=== PATIENT | male | born 1965 | race Caucasian/White ===

== ENCOUNTER 2016-09-07 17:26 | Emergency (ER) | payer SELFPAY ==
[2016-09-07] MEDS ORDERED: TRAM1TAB4 PO (18:25)
[2016-09-07] MEDS ORDERED: META-21 PO (18:25)
--- NOTE | 2016-09-07 18:26 | PHYS DOC ---
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 He has a significant amount of skin retraction that pulling on the right posterior neck strap muscles. He has discussed having release of the contractures but states "I don' t have a time yet". He just recently moved here from [place] and does not have a physician established.. No trauma or direct injury or fall. No numbness or tingling of the arm. Review of Systems Review of Systems Constitutional: Denies fever or chills Musculoskeletal: Denies back pain. Integument: Denies rash or skin lesions Neurologic: Denies headache, focal weakness or sensory changes Current Medications Current Medications Lisinopril; ASA Allergies Allergies Allergies Coded Allergies Type Severity Reaction Last Updated Verified strawberry Allergy Unknown 09/07/16 Yes Physical Exam Physical Exam Constitutional: Well developed, well nourished, no acute distress, non-toxic appearance. HENT: Normocephalic, atraumatic, right ear with reconstructive surgery, oropharynx moist, no oral exudates, nose normal. Neck: Restricted range of motion due to contractures, no tenderness, supple, no stridor. Extremities: Tender along palpation of the right supraspinatus. No tenderness on palpation of the right AC joint. He does have range of motion noted. Most pain is with extension and external rotation. Neurovascularly intact distally. No pain on palpation of the humeral head. Neurologic: Alert and oriented X 3, normal motor function, normal sensory function, no focal deficits noted. Psychologic: Affect normal, judgement normal, mood normal. Current Patient Data Vital Signs Vital Signs Date Time Temp Pulse Resp B/P (MAP) Pulse Ox O2 Delivery O2 Flow Rate FiO2 09/07/16 17:26 99.0 113 18 96 Room Air BP 147/103 (patient is on antihypertensives) Course & Med Decision Making Course & Med Decision Making Do not feel x-rays are needed at this time. This is soft tissue injury. We'll treat him with Skelaxin which is a muscle relaxer that he can still work on. We' ll add tramadol as he is taken that in the past for pain. Given referral for follow-up. Dragon Disclaimer Dragon Disclaimer This chart was dictated in whole or in part using Voice Recognition software in a busy, high-work load, and often noisy Emergency Department environment. It may contain unintended and wholly unrecognized errors or omissions. Departure Departure: Impression: Primary Impression: Right shoulder strain Disposition: HOME, SELF-CARE Condition: GOOD Referrals: PCP,NO (PCP) Patient Instructions: Shoulder Pain Scripts Tramadol Hcl/Acetaminophen (TRAMADOL-ACETAMINOPHN 37.5-325) 1 Each Tablet 1 EACH PO Q4-6HRS Y for PAIN, #30 TAB Prov: CHRISTIANO BROWN MD 09/07/16 Metaxalone (SKELAXIN) 800 Mg Tablet 1 TAB PO TID Y for PAIN, #30 TAB Prov: CHRISTIANO BROWN MD 09/07/16 CHRISTIANO BROWN MD September 07, 2016 18:26
[2016-09-07 18:35] VITALS: BP 131/98
== END 2016-09-07 18:35 | disposition home or self-care (01) ==
LOC: ER 17:26
DX: S46.911A Strain of unspecified muscle, fascia and tendon at shoulder and upper arm level, right arm, initial encounter (principal); I10 Essential (primary) hypertension; F17.210 Nicotine dependence, cigarettes, uncomplicated; Z91.018 Allergy to other foods; X58.XXXA Exposure to other specified factors, initial encounter; Y93.89 Activity, other specified; Y99.8 Other external cause status; Y92.89 Other specified places as the place of occurrence of the external cause
CPT/HCPCS: 99283